=== PATIENT | female | born 1960 | race Caucasian/White ===

== ENCOUNTER 2017-01-06 10:19 | Inpatient (IN) | payer MEDICARE, OTHER, MEDICAID ==
[~2017-01-06] VITALS: Ht 160 cm; Wt 41.7 kg
[2017-01-06] VITALS (8 sets, daily range): BP systolic 63–145; BP diastolic 46–92; PULSE 78–102; RESP 10–19; O2SAT 96–100
[~2017-01-06 10:19] MED LIST: BACL10TA PO; BLAC80CA PO; CHOL100045 PO; FISH1CAP16 PO; GLUC-120 PO; LACT1CAP73 PO; LEVO750T39 PO; MAGN250T PO; MULT-939 PO; NATA300V IV; NORT75CA PO; PEPS1TAB11 PO; TIZA4CAP8 PO; TURM1POW PO; VALA500T38 PO; [UNRECOGNIZED DRUG - CODE] ORAL; [UNRECOGNIZED DRUG - CODE] PO; [UNRECOGNIZED DRUG - OTHER] PO; [UNRECOGNIZED DRUG - OTHER] PO; b complex PO; thyroid support PO
[2017-01-06] MEDS ORDERED: 0.9% Sodium Chloride 1,000 ML IV ONE ×2 (10:35→14:25)
--- NOTE | 2017-01-06 10:56 | DRSVH ---
PROCEDURE: X-RAY CHEST ONE VIEW, PORTABLE ([id number]) INDICATIONS: sepsis TECHNIQUE: One view of the chest was acquired. COMPARISON: [facility], CR, XR CHEST 1VW (PORTABLE), 06/19/2015, 10:19. FINDINGS: Surgical changes and devices: None. Lungs and pleura: No pleural effusions or pneumothorax. Lungs are clear. Mediastinum: Mediastinal contours appear normal. Heart size is normal. Bones and chest wall: No suspicious bony lesions. Overlying soft tissues appear unremarkable. IMPRESSION: No acute process. Dictated by: Janene Taylor M.D. on 01/06/2017 at 10:55 Approved by: Janene Taylor M.D. on 01/06/2017 at 10:55
--- NOTE | 2017-01-06 10:58 | ED.REPORT ---
HPI-General Illness Date of Service January 06, 2017 ED Provider: Medardo Garcia MD A 56 year old female with an extensive medical history including MS, urinary retention with chronic Hart catheter and Vancomycin resistant enterococcus faecalis sepsis in 2012 presents to the ED accompanied by her hunting guide due to suspicion of a UTI and sepsis. Infection is suspected by the pt and her hunting guide due to hypotension in the 60s, fever, chills, diaphoresis, constipation, weakness and decreased fluid and food intake. The symptoms began yesterday and have persisted since. These symptoms are characteristic of her infections and were present when she was diagnosed with enterococcus faecium sepsis in 2012. The pt is also complaining of trouble swallowing and abnormal speech as of this morning, which she has not experienced before. The pt denies shaking, cough, or shortness of breath. The pt's blood pressure fluctuates at baseline, but hypotension is usually easily corrected with fluids and positioning. She noticed that her blood pressure was low yesterday, which took an abnormally long time to correct. Treatments today had no corrective impact on her hypotension. The pt has her Hart catheter changed once a month and the current catheter has been in for two weeks. She has been treated with ibuprofen and Tylenol, the last dose of which was at 08:30. The pt's last TYSABRI infusion was three weeks ago and she has not been on antibiotics for some time. Nursing Notes Stated Complaint: LOW BLOOD PRESSURE Chief Complaint: General Complaint Nursing Notes Reviewed: Yes ([place] not reconciled) Allergies: Coded Allergies: Sulfa (Sulfonamide Antibiotics) (Verified Allergy, Severe, Hives, 02/23/15) ciprofloxacin (Verified Allergy, Severe, 01/06/17) I could terbinafine (Verified Allergy, Unknown, 02/23/15) Scheduled ([b complex]) 1 TAB PO DAILY ([thyroid support ]) 1 TAB PO HS ([thyroid support]) 2 TAB PO DAILY Acetaminophen (Acetaminophen) 500 Mg Tablet 1,000 MG PO BID Baclofen (Baclofen) 10 Mg Tablet 5 MG PO MID DAY Black Cohosh Root Extract (Black Cohosh Extract) 80 Mg Capsule 40 MG PO BID Cholecalciferol (Vitamin D3) (Vitamin D) 1,000 Unit Capsule 5,000 UNIT PO daily alternating Cholecalciferol (Vitamin D3) (Vitamin D) 1,000 Unit Capsule 10,000 UNIT PO daily alternating Fish Oil/Borage/Flax/Om3,6,9#1 (Michael 3-6-9 Complex Softgel) 400 Mg Capsule 1, 600 MG PO DAILY Fish Oil/Borage/Flax/Om3,6,9#1 (Michael 3-6-9 Complex Softgel) 400 Mg Capsule 800 MG PO HS Gluc 2Kcl/Chondr/James Hy/Hy AC (Glucosamine & Chondroitin Cap) 1 Each Capsule 2 EACH PO DAILY Lactobacillus Combo No.11 (Probiotic) 1 Each Cap.sprink 50 MG PO DAILY Magnesium (Magnesium) 250 Mg Tablet 500 MG PO DIRECTED Methylphenidate Chew (Methylphenidate Chew) 10 Mg Tab.chew 10 MG PO DIRECTED 10 mg in a.m. and 10 mg at 1400 daily Naproxen Sodium (Aleve) 220 Mg Capsule 440 MG PO BID Natalizumab (Tysabri) 300 Mg/15 Ml Vial 300 MG IV EVERY 4 WEEKS Nortriptyline (Nortriptyline) 75 Mg Capsule 75 MG PO HS Pepsin/Katt/Ox Bile/Rogers/Bet/Pap (Enzymatic Digestant ER Tablet) 1 Each Tablet.er 1 EACH PO DAILY Strontium Nitrate (Strontium Nitrate) 1 Gm Crystals 680 MG ORAL DAILY Tizanidine (Tizanidine) 4 Mg Capsule 4 MG PO TID Turmeric (Curcumin) 1 Gm Powder 665 MG PO DAILY Valacyclovir (Valacyclovir) 500 Mg Tablet 500 MG PO HS Miscellaneous Medications Multivits,Ca,Minerals/Iron/FA (Women's Daily Formula Caplet) 500-18-0.4 Tablet 2 EACH PO General Time Seen by MD: 10:29 Chief Complaint Other (Possible UTI) Hx 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 Physical Exam Vital Signs Vital Signs Date Time Temp Pulse Resp B/P Pulse Ox O2 Delivery O2 Flow Rate FiO2 01/06/17 13:26 89 19 127/72 100 Room Air 01/06/17 11:57 36.4 80 18 95/58 100 Room Air 01/06/17 10:44 36.4 78 10 90/47 98 Room Air Initial VS: Reviewed, Vital signs abnormal General/Constitutional: Awake, Alert Appearance / Presentation: Positive: Cachectic profound global weakness chronically ill appearing answering questions thick speech, caretakers state that this is unusual but pt reports speech is due to dry mouth chronic Hart catheter draining clear, dark urine Head / Eyes: Atraumatic, Normocephalic, PERRL, EOMI ENT: Atraumatic, Airway patent, Mucous membranes moist Neck: Atraumatic, Supple, Full range of motion Respiratory / Chest: Atraumatic, Breath sounds NL, Breath sounds = bilat, No respiratory distress not tachypneic or dyspneic Cardiovascular: Heart rate NL, Regular rhythm, Heart sounds NL Abdomen: Atraumatic, Soft, Non-tender Back: Atraumatic, Full range of motion Upper Extremities Upper Extremity / MS: Atraumatic, Full range of motion Lower Extremity / Pelvis / MS: Atraumatic, Full range of motion, No edema Skin: Atraumatic, Color NL, No rash, Warm, Dry Neurologic: Oriented X3, Speech NL, No motor deficits, No sensory deficits Psychiatric: Affect NL, Mood NL Interpretation & Diagnostics Lab Results Interpretation Result Diagram: 01/06/17 1115 01/06/17 1115 Test 01/06/17 11:12 01/06/17 11:15 Urine Color Yellow (YELLOW) Urine Appearance Cloudy (CLEAR,HAZY) Urine pH 8.0 (5.0-8.0) Urine Specific Valentine 1.015 (1.003-1.035) Urine Protein Negativemg/dL (NEG,TRACE) Urine Glucose (UA) Negativemg/dL (NEGATIVE) Urine Ketones 15mg/dL (NEGATIVE) Urine Occult Blood Trace (NEGATIVE) Urine Nitrite Positive (NEGATIVE) Urine Bilirubin Negative (NEGATIVE) Urine Urobilinogen Normalmg/dL (NORMAL) Urine Leukocyte Esterase Large (NEGATIVE) Urine RBC 0-2/hpf (0-2) Urine WBC >50/hpf (0-5) Urine Epithelial Cells Few/hpf (NONE-MOD) Urine Crystals None seen (NONE SEEN) Urine Bacteria Many/hpf (NONE-FEW) Urine Hyaline Casts None/lpf (NONE) Urine Granular Casts None seen (NONE SEEN) Urine Waxy Casts None seen (NONE SEEN) Urine Red Blood Cell Casts None seen (NONE SEEN) Urine White Blood Cell Casts None seen (NONE SEEN) Urine Mucus None seen (None Seen) Urine Trichomonas None seen (NONE SEEN) Urine Yeast None (NONE SEEN) Urinalysis Comment None Urine Culture Reflexed Indicated White Blood Count 6.2th/mm3 (3.8-10.1) Red Blood Count 3.21mil/mm3 (3.90-5.20) Hemoglobin 9.8g/dL (12.0-15.6) Hematocrit 29.4% (35.0-46.0) Mean Corpuscular Volume 91.6fL (81-100) Mean Corpuscular Hemoglobin 30.5pg (27.0-35.0) Mean Corpuscular Hemoglobin Concent 33.3% (32.0-37.0) Red Cell Distribution Width 14.8% (12.3-15.4) Platelet Count 200bil/L (150-400) Neutrophils (%) (Auto) 63.2% (40-74) Lymphocytes (%) (Auto) 26.1% (14-46) Monocytes (%) (Auto) 9.5% (4-12) Eosinophils (%) (Auto) 0.3% (0-5) Basophils (%) (Auto) 0.6% (0-3) Sodium Level 127mEq/L (134-144) Potassium Level 4.1mEq/L (3.5-5.2) Chloride Level 92mEq/L (97-108) Carbon Dioxide Level 21mmol/L (18-29) Blood Urea Nitrogen 6mg/dL (6-24) Creatinine < 0.30mg/dL (0.57-1.00) Estimat Glomerular Filtration Rate 331mL/min (>59) Glucose Level 114mg/dL (60-99) Lactic Acid Level 1.3mmol/L (0.4-2.0) Calcium Level 7.7mg/dL (8.5-10.1) Total Bilirubin 0.3mg/dL (0.0-1.2) Aspartate Amino Transf (AST/SGOT) 201U/L (0-50) Alanine Aminotransferase (ALT/SGPT) 110U/L (0-32) Alkaline Phosphatase 104U/L (25-150) Total Protein 4.9g/dL (6.4-8.4) Albumin 2.6g/dL (3.4-5.0) Lab Results Interpretation: CBC mild anemia CMP mild hyponatremia, mild LFT abnormalities nonspecific low albumin, protein consistent with a level of vomiting addition Cultures 2 pending Urinalysis markers of infection, but is from a chronic Hart so not totally interpretable, cultures pending (note: Previous history of VRE in 2013, microbiology is at this facility and the sensitivity pattern reviewed) X-Ray Chest Interpretation Chest Xray Interpretation: IMPRESSION: No acute process. Dictated by: Janene Taylor M.D. on 01/06/2017 at 10:55 Approved by: Janene Taylor M.D. on 01/06/2017 at 10:55 Interpretation / Wet Read by: Interpret - Radiologist Re-Eval/Medical Decision Med Decision/Clinical Course This is a 56-year-old female with chronic MS who is on Tysabri infusions monthly (so she is immunosuppressed) who presents with a concern for possible sepsis from a UTI. The patient has had intermittent sepsis, and has been hospitalized for VRE of urine with sepsis in 2012-and is worried that is what is going on now. She does have a chronic Hart, and she always has a low level of infection, but reports that she had labs in urine and last month that were "okay". She also notes she has very labile blood pressures, and sometimes has low blood pressure, sometimes has moderate blood pressure, put her blood pressures low she has a strategy of drinking specific fluids, electrolytes, laying down and a blood pressure usually comes up. Over that yesterday she felt unusually fatigued, and then the blood pressure started to come up, but today she felt weaker, she is concerned and feels that she is developing infection, and her blood pressure did not really respond. She reports she does not usually get concerned till her blood pressures less than 70 systolic, and today her blood pressure is low as 60. On arrival her blood pressures 90, but she appears weak, cachectic, moderately ill-and chronically ill. Not diaphoretic, she is not febrile. She denies respiratory or alternate symptoms worse, she does have a Hart draining clear urine, but it is dark. Her speech is mildly thick, which she says has just because of a dry mouth. Her abdomen is soft nontender without clinical signs of peritonitis. No cellulitis or alternate source of infection or fever evident. Lungs are clear, no heart murmurs. Overall the patient's presentation is highly concerning for developing sepsis. Although she is not febrile, and does not log turner to have white count- with the hypotension, the history of immunosuppression, and her overall symptoms remain highly suspicious for an infectious etiology. The patient does not think her MS has changed from baseline.. The patient clinically appears on the dry side receive IV fluids, blood pressures improved to the mid 90s which she says is pretty good for her. She had no recurrence of severe hypotension in the department, was only profoundly hypotensive for EMS. Surgical alternate sources revealed a normal chest x-ray. Urine has multiple markers of infection-again the samples from a Hart, so this is not definitive. The Hart itself is about 3 weeks old, and was replaced in the department. Given her comorbidities, highly concerning status she is being empirically covered with aggressive antibiotics. She has a prior history of vancomycin resistant enterococcus in 2013, so I discussed the case with infectious disease further thoughts of whether or not the patient wears isolation and/or empiric treatment. The patient does not currently require isolation, but they do recommend empiric coverage. The resistance pattern from 2013 was reviewed, and was sensitive to low nasal lid, however the patient is on an antidepressant for interaction with oral and linezolid, so Dr. Conner recommended daptomycin 400 mg IV, and for general coverage ertapenem 1 g IV daily-so these were initiated. Discussed the case with the patient's neurologist Dr. Javed agrees with the admission with a focus on management of the initial sepsis, but recommends when possible to obtain an MRI of the brain with and without contrast given his report of mild dysphagia to exclude the possibility of development of PNL from the TYsabri. Patient was seen by speech pathology and was cleared. Discussed the hospitalist and the patient is being admitted in stable condition. She is improved,. Hypotension is resolved. Source of Hx: Old records Time of Eval: 10:29 Re-Evaluation/Progress Note: Pt informed of the plan for admission during the intial interveiw. The pt understands and agrees with the plan. All questions are addressed at this time. Consultation #1: Referral / Consult Name: Marc Conner MD Call Returned at: 12:22 Note: Consulted with Dr. Marc Conner, infectious disease specialist, regarding pt's case. He recommends not giving the pt Linezolid given her antidepressant use. He recommends empiric daptomycin 400 mg and ertapenem for general coverage without isolation precautions. Dr. Conner agrees to consult. Consultation #2: Referral / Consult Name: Mary Dominguez MD Consulted With: Neurology Call Returned at: 12:43 Meat Carver: Agrees with eval, Agrees with plan Note: Consulted with Dr. Dominguez, neurology, regarding pt's case. Dr. Dominguez agrees with the evaluation and plan. Consultation #3: Referral / Consult Name: Jefry Sweeney MD Consulted With: Hospitalist Call Returned at: 13:03 Meat Carver: Agrees with eval, Agrees with plan, Accepts admit Note: Consulted with Dr. Sweeney, hospitalist, regarding pt's case. Dr. Sweeney agrees with the evaluation and agrees to admit the pt. Differential Diagnosis: Positive: Urinary tract infection, Negative: Drug dependence, G-tube repair/replacement, Neutropenia, Syncope Counseled Regarding: Diagnosis, Lab results, Need for admission Discharge & Departure Primary Impression: Sepsis Sepsis type: sepsis due to unspecified organism Qualified Code: A41.9 - Sepsis, unspecified organism Additional Impressions: UTI (urinary tract infection) Urinary tract infection type: site unspecified Hematuria presence: without hematuria Qualified Code: N39.0 - Urinary tract infection, site not specified History of infection with vancomycin resistant Enterococcus (VRE) Multiple sclerosis Dysphagia Dysphagia type: unspecified Qualified Code: R13.10 - Dysphagia, unspecified Hypotension Hypotension type: unspecified hypotension type Qualified Code: I95.9 - Hypotension, unspecified Disposition: ADMITTED TO HOSPITAL Discharge Condition All VS Reviewed: Yes Condition: Stable Referrals: Sai Fink MD (PCP) Mary Dominguez MD Crit Care Except Billable Proc Time Spent: 30-74 minutes Services Performed: Patient management by me, Time spent at bedside, Reviewing test results, Reviewing imaging, Discussing patient care, Documentation in record, Time with fam/surrogate Scribe Attestation Portions of this note were transcribed by Hailey Goff. I, Dr. Garcia personally performed the history, physical exam and medical decision-making; I reviewed and confirmed the accuracy of the information in the transcribed note. Signed by: Td Marshall, 01/06/2017 and 1317. copies to: Mary Dominguez MD; Sai Fink MD, Matthew F MD January 06, 2017 10:58 HAILEY GOFF January 06, 2017 11:22
[2017-01-06 11:32] LABS: BASOPHILS % (AUTO) 0.6 % (0-3); EOSINOPHILS % (AUTO) 0.3 % (0-5); MONOCYTES % (AUTO) 9.5 % (4-12); Mean Corpuscular Hemoglobin 30.5 pg (27.0-35.0); Mean Corpuscular Volume 91.6 fL (81-100); NEUTROPHILS % (AUTO) 63.2 % (40-74); Platelet Count 200 bil/L (150-400)
[2017-01-06 11:35] LABS: APPEARANCE,URINE CLOUDY (CLEAR,HAZY); COLOR,URINE YELLOW (YELLOW); OCCULT BLOOD,URINE TRACE (NEGATIVE); UROBILINOGEN,URINE NORMAL (NORMAL)
[2017-01-06] MEDS ORDERED: Lidocaine 2% 6mL Topical Jelly TOPICAL ONE (12:05)
[2017-01-06] MEDS ORDERED: cefTRIAXone Inj 2,000 MG in Dextrose 5% Minibag Plus 50 ML IV ONE (12:10)
[2017-01-06] MEDS ORDERED: DAPTOmycin Inj 400 MG in 0.9% Sodium Chloride 50 ML IV ONE (12:30)
[2017-01-06] MEDS ORDERED: Ertapenem Inj 1,000 MG in 0.9% Sodium Chloride 50 ML IV ONE (12:30)
[2017-01-06] MEDS ORDERED: Ondansetron 2 mg/mL 2 mL Inj IVPUSH PRN (13:10)
[2017-01-06] MEDS ORDERED: Alum-Mag Hydrox-Simeth 30 mL Suspension PO PRN (13:10)
[2017-01-06] MEDS ORDERED: Polyethylene Glycol (PEG) 17 Gm Powder PO PRN (13:10)
--- NOTE | 2017-01-06 13:30 | NUR ---
Evaluation completed. Please go to "Notes" then click on "Assessments and Notes" (bottom left corner of screen). Then select appropriate discipline tab on top of screen.
[2017-01-06] MEDS ORDERED: ACET-171 PO (14:31)
[2017-01-06] MEDS ORDERED: NAPR220C11 PO (14:31)
[2017-01-06] MEDS ORDERED: MULT-1080 PO (14:33)
[2017-01-06] MEDS ORDERED: DOCU-41 PO (14:50)
[2017-01-06] MEDS ORDERED: POLY17PO6 PO (14:50)
[2017-01-06] MEDS ORDERED: CHOLECALCIFEROL 10000 UNIT PO SCH (15:35)
--- NOTE | 2017-01-06 17:30 | NUR ---
Transfer Pt. transferred from the Ed to room 2023 PCC. Pt. upon arrival was content and had no c/o pain, SOB or CP. Pt. is unable to ambulate and uses wheel chair at baseline. Pt. at this time is compliant with care, VS stable and at RA. Will continue to monitor.
[2017-01-06] MEDS: Polyethylene Glycol (PEG) 17 Gm Powder PO SCH (17:53)
--- NOTE | 2017-01-06 18:42 | PCM.HPMED ---
Subjective Date of Service January 06, 2017 Primary Provider: Admitting Physician: Jefry Sweeney MD Primary Care Physician: Sai Fink MD Attending Physician: Jefry Sweeney MD Admit Status: From the Emergency Department, Full Admit, Admit to Yellow Team Chief Complaint: "I had really low, low blood pressure". History of Present Illness: The patient is a very pleasant 56-year-old white female with an extensive medical history including multiple sclerosis, urinary retention with chronic Hart catheter in place and history of vancomycin-resistant Enterococcus faecalis septicemia in 2012 has labile blood pressure home and regularly monitors her blood pressure at home. Patient will routinely drink extra liquids or raise her legs up if her blood pressure is low and yesterday she noticed that her blood pressure was low so she drank a 6 ounce can of V8 and "tons of water" and put her legs up. Pressure improved and I asked her what "tons of water" were she stated approximately 3 L of water. However, today when she found her blood pressure to be low in fact she could not even find a blood pressure on her monitor. She drank 2 L of water and put her legs up however she could still not get a blood pressure to record on her monitor. She feels that her blood pressure was so low that was undetectable by her fairly high quality blood pressure monitoring kit. She therefore called 911 and was brought to [facility] emergency room by EMS services. Patient was evaluated by Dr. Medardo Garcia who found that the patient's systolic blood pressure on arrival was only 90 patient speech was thick but she felt that was due to a very dry mouth. Patient had a chest x-ray which was unremarkable. Due to the medical suspicion of sepsis patient was given IV fluids. Patient had blood and urine cultures obtained and patient was felt to in need of IV antibiotics however she had a history of vancomycin resistant enterococcus [place] [address] Medardo Garcia contacted Dr. Marc Conner of infectious disease and Dr. Conner recommended daptomycin 400 mg IV and ertapenem 1 g IV daily. These were given in the emergency room. Dr. Salas as also discussed the case with the patient's neurologist Dr. Dina Abdul who recommended patient have an MRI with and without contrast. To exclude the possibility of development of PML the Tysabri medication that she takes. Patient was seen by speech pathology and was cleared to eat. Patient's urinalysis was found to have greater than 50 white blood cells and positive leukocyte Estrace and given the clinical evidence of urinary tract infection with septicemia with history of vancomycin-resistant enterococcus patient was admitted to the hospital service for further evaluation and treatment. Review of Systems: General: Patient is bedridden and requires caregiver 3 hours in the morning 2 hours in the afternoon 4 hours in the evening from 9 PM to 8 AM she is alone. She states that the caregivers are responsible for all of her activities of daily living. She is unable to perform any of the activities of daily living due to her multiple sclerosis. She has been feeling very weak and has had some fever, chills, diaphoresis, constipation and weakness with decreased fluid and food intake. HEENT: Patient has no headache, patient has no diplopia, patient has no changes in vision. However, she does have a diagnosis of macular degeneration. Patient has no problems with their ears, nose or throat. Patient has no known dental problems. Patient has no pharyngitis or history of thrush. Neck: Patient has no stiffness in the neck. He states she has an accentuated curvature of her neck. Patient has no lymphadenopathy. Patient has no other problems with their neck. Pulmonary: Patient has no shortness of breath, no cough, no expectoration of sputum. Patient has no pleurisy. Patient has no chest pain. Patient has no history of asthma or COPD. Cardiovascular: Patient has no chest pain. Patient has no history of heart murmur. Patient has no palpitations. Patient has no history of myocardial infarction. Patient has no history of coronary artery disease that has been diagnosed. However, she has had angina twice before due to "stress". Gastrointestinal: Patient has no history of hepatitis A, B or C. Patient has no history of peptic ulcer disease. Patient has no history of gastroesophageal reflux disease. Patient has no history of nausea, vomiting, or diarrhea. Patient has no history of hematemesis, hematochezia, or melena. Patient has no history of colitis. Renal: Patient has no history of kidney disease. No history of kidney stones. Genitourinary: Patient has a neurogenic bladder and urinary retention and has a chronic indwelling Hart. She has a Hart catheter changed once a month. She states she is chronically colonized with bacteria and her urologist will treat it, unless she is "septic". Musculoskeletal: Patient has a history of osteoporosis. Neurologic: Patient has no history of stroke, no history of seizure, no history of TIA. However, patient has progressive multiple sclerosis and is bedridden and unable to hold her own weight. She is able to move her upper extremities quite well and does practice "virtual walking". Psychiatric: Patient has a history of suicidal depression. She is not suicidal at present time. She has a history of dissociative identity disorder or "DID". She has been treated with "EMDR". She states that she has 2 other personalities 1 which will literally try to kill people who are close to her and another personality who will occur up on the floor and start sucking her thumb. Both personalities take over her persona and she is unaware of her behavior during these periods. The remainder of the entire review of systems was reviewed with patient and is as mentioned above otherwise negative. Allergies Coded Allergies: Sulfa (Sulfonamide Antibiotics) (Verified Allergy, Severe, Hives, 02/23/15) ciprofloxacin (Verified Allergy, Severe, 01/06/17) I could terbinafine (Verified Allergy, Unknown, 02/23/15) Home Medications Scheduled ([b complex]) 1 TAB PO DAILY ([thyroid support ]) 1 TAB PO HS ([thyroid support]) 2 TAB PO DAILY Acetaminophen (Acetaminophen) 500 Mg Tablet 1,000 MG PO BID Baclofen (Baclofen) 10 Mg Tablet 5 MG PO MID DAY Black Cohosh Root Extract (Black Cohosh Extract) 80 Mg Capsule 40 MG PO BID Cholecalciferol (Vitamin D3) (Vitamin D) 1,000 Unit Capsule 5,000 UNIT PO daily alternating Cholecalciferol (Vitamin D3) (Vitamin D) 1,000 Unit Capsule 10,000 UNIT PO daily alternating Fish Oil/Borage/Flax/Om3,6,9#1 ([place] 3-6-9 Complex Softgel) 400 Mg Capsule 1, 600 MG PO DAILY Fish Oil/Borage/Flax/Om3,6,9#1 ([place] 3-6-9 Complex Softgel) 400 Mg Capsule 800 MG PO HS Gluc 2Kcl/Chondr/James Hy/Hy AC (Glucosamine & Chondroitin Cap) 1 Each Capsule 2 EACH PO DAILY Lactobacillus Combo No.11 (Probiotic) 1 Each Cap.sprink 50 MG PO DAILY Magnesium (Magnesium) 250 Mg Tablet 500 MG PO DIRECTED Methylphenidate Chew (Methylphenidate Chew) 10 Mg Tab.chew 10 MG PO DIRECTED 10 mg in a.m. and 10 mg at 1400 daily Naproxen Sodium (Aleve) 220 Mg Capsule 440 MG PO BID Natalizumab (Tysabri) 300 Mg/15 Ml Vial 300 MG IV EVERY 4 WEEKS Nortriptyline (Nortriptyline) 75 Mg Capsule 75 MG PO HS Pepsin/Katt/Ox Bile/Rogers/Bet/Pap (Enzymatic Digestant ER Tablet) 1 Each Tablet.er 1 EACH PO DAILY Strontium Nitrate (Strontium Nitrate) 1 Gm Crystals 680 MG ORAL DAILY Tizanidine (Tizanidine) 4 Mg Capsule 4 MG PO TID Turmeric (Curcumin) 1 Gm Powder 665 MG PO DAILY Valacyclovir (Valacyclovir) 500 Mg Tablet 500 MG PO HS Miscellaneous Medications Multivits,Ca,Minerals/Iron/FA (Women's Daily Formula Caplet) 500-18-0.4 Tablet 2 EACH PO PMH Multiple sclerosis progressive to the point where patient is wheelchair-bound and bedbound. She is unable to bear her own weight and has a chronic indwelling Hart. She reports having a "twisty redundant colon". She reports having 2 episodes of angina during stressful periods of her life. She has a history of shingles. She has a history of cervical cancer and had a hysterectomy. Physical history of hypothyroidism. She had severe migraines in 2000 when her 15-year-old son committed suicide. She has a history of macular degeneration in both eyes left greater than right She has a history of osteoporosis She has a history of "low-grade athlete's foot" She has psychiatric problems as described in the systems. Patient is 3 para 3. All were normal spontaneous vaginal deliveries. Surgical History She had her adenoids out She had her wisdom teeth removed per history She had bilateral bunionectomies Data colonoscopy in May 2015 She reports a hysterectomy She reports a unilateral salpingo-oophorectomy and she had her daughter they thought she had a tubal . Patient had an episiotomy with at least one of her 3 childbirths and the lidocaine use had no effect on her. Family History Patient's mother when the patient was 5 years old. She does not know how old her mother was when she and she does not know anything about her history other than she had alcoholism and pneumonia. Patient knows nothing about her father. She does have 1 brother who is a biological sibling who has asthma. Of note 2 of the patient's children also have suicidal depression. Social History Hx Alcohol Use: Yes (recovering alcoholic sober for 25 years. Patient used to drink Bacardi rum from morning until evening and got to the point where it would do nothing for her anymore. After going to a counselor she quit alcohol in July on 07/14/1991.) Hx Substance Use: Yes (some marijuana and amphetamines . Patient used to cardiac until 3 in the morning and had to get up at 6:30 to go to work so she would take methamphetamine in the form of "white crosses" and then "black beauties") Hx Tobacco Use: Yes Smoking Status: Former Smoker (patient smoked 2 packs per day from the age of 13 to 1992.) Years of Smokin Living Arrangement: Alone Additional Information Patient was born in [place] she went to high school in [place], [place] and she attended a [employer], [place] and then in a [facility] [facility] or [employer] [facility] [employer]. She is to her first and only for 15 years her marriage was falling apart and then she had and was diagnosed with multiple sclerosis and came to live in [place], [place]. Patient had her kids with her initially and then since they have moved out she now lives alone. One of her children committed suicide at the age of 15. This was very hard on her. One of her other children also has a history of suicidal depression. Patient herself is suffers from suicidal depression which she thought was normal growing up and dissociative identity disorder, otherwise known as"DID"(see review of systems) and PTSD. Exam Vital Signs Vital Sign - Last Date Time Temp Pulse Resp B/P Pulse Ox O2 Delivery O2 Flow Rate FiO2 01/06/17 15:09 97 01/06/17 14:58 36.4 18 125/82 99 Room Air Exam General: Patient appears to be in no apparent distress. She is alert and responsive and a good historian at this time. HEENT: Head is atraumatic and normocephalic. Eyes: Pupils are equally round and reactive to light and accommodation. Extraocular muscles are intact. Sclera are white, anicteric. Subconjunctival mucosa is pink. Ears and nose are unremarkable. Oropharynx: There is no mucosal lesions, there is no thrush, there is no pharyngitis. Neck: Is supple, there are no nodes, or masses or tenderness. Chest: Is clear to auscultation and percussion. There are no rales, rhonchi, wheezes or rubs. Heart: Rate, rhythm is regular. There is no murmur, rub or gallop. Abdomen: Good bowel sounds are present. Abdomen is soft, nontender, no organomegaly or masses were appreciated. Extremities: Are cachectic, but symmetrical and well perfused. There is no edema, there is no cellulitis, no rash. Neurologic: Patient is unable to move her legs. She is able to move her feet. She is not able to move her lower extremities against gravity or at all for that matter except her feet. Cranial nerves II through XII are intact. Psychiatric: Patients mood is calm and she shows no sign of agitation. She appears to be in good spirits. Genital: She has a Hart catheter in place pelvic exam was deferred. Rectal: Deferred Lab and Diagnostics Result Diagram: 01/06/17 1115 01/06/17 1115 Microbiology Plan urine cultures are pending. X-Rays, CTs and MRIs PROCEDURE: X-RAY CHEST ONE VIEW, PORTABLE ([id number]) INDICATIONS: sepsis TECHNIQUE: One view of the chest was acquired. COMPARISON: [facility], CR, XR CHEST 1VW (PORTABLE), 06/19/2015, 10 :19. FINDINGS: Surgical changes and devices: None. Lungs and pleura: No pleural effusions or pneumothorax. Lungs are clear. Mediastinum: Mediastinal contours appear normal. Heart size is normal. Bones and chest wall: No suspicious bony lesions. Overlying soft tissues appear unremarkable. IMPRESSION: No acute process. Dictated by: Janene Taylor M.D. on 01/06/2017 at 10:55 Approved by: Janene Taylor M.D. on 01/06/2017 at 10:55 Assessment & Plan Patient is a very pleasant 56-year-old white female with long-standing history of multiple sclerosis who is wheelchair-bound unable to hold her own weight standing. She has a chronic indwelling Hart catheter. She has labile blood pressures over the last 24-48 hours has been monitoring her blood pressures and trying to correct hypotension with drinking V8 juice and liters of water. However, today her blood pressure was so low it would not register on her blood pressure monitor. Patient also has been experiencing some subjective fevers chills and weakness and difficulty with speech. Patient has a history of a VRE urinary tract infection in 2012. Patient was admitted to the hospitalist service for further evaluation and treatment. # Sepsis, present at the time of admission. Active and ongoing - Source undoubtedly a urinary tract infection with chronic indwelling Hart and associated pyuria with positive leukocyte esterase in the urine. - Patient has a history of a VRE urinary tract infection in 2012. We will need to rule out the possibility of recurrence. - Dr. Conner has been consulted and has recommended that the patient received Daptomycin and Invanz which have been ordered and we will continue, pending Dr. Conner's formal consultation. - We will continue daptomycin 6 mg/kg IV every 24 hours and Invanz 1 g IV every 24 hours for now pending culture results. # Advanced multiple sclerosis, present at the time of admission. Active with acute encephalopathy - Patient's neurologist is Dr. Dina Collins - Suspect patient has a urinary tract infection with sepsis with related encephalopathy. - Possible PML associated with Tysabri use. An MRI has been ordered and is pending - We will consult speech therapy, occupational therapy, physical therapy. - We will consult neurology if necessary. However, I suspect the patient's change in mental status and encephalopathy are related to her current infection and not an advancement of her multiple sclerosis or PML. # History of remote angina - Patient has no chest pain at present time - Continue telemetry monitoring until tomorrow # History of shingles - Patient is immunosuppressed on Tysabri - Continue Valtrex as at home. # History of hypothyroidism - Check TSH in a.m. - Continue with home meds # History of osteoporosis - Continue home medications # History of depression, dissociative identity disorder and PTSD - Continue patient's home medications - Close observation and support as needed # History of cervical cancer status post hysterectomy Disposition: Patient will likely require more than 2 midnights to evaluate and treat the above complex conditions. Therefore, patient was admitted as an inpatient. Pain Evaluation: Adequate Pain Control GI Prophylaxis: Not indicated VTE Prophylaxis: Sub-Q Enoxaparin Resuscitation Status: CPR: Attempt Resuscitation Jefry Sweeney MD January 06, 2017 18:42
[2017-01-06] MEDS ORDERED: [UNRECOGNIZED DRUG - OTHER] PO SCH (21:00)
[2017-01-06] MEDS ORDERED: THYROID SUPPORT PO SCH (21:00)
[2017-01-06] MEDS ORDERED: FISH OIL PO SCH (21:00)
[2017-01-06] MEDS ORDERED: BORAGE PO SCH (21:00)
[2017-01-06] MEDS ORDERED: FLAX PO SCH (21:00)
[2017-01-07] VITALS (11 sets, daily range): BP systolic 68–159; BP diastolic 40–101; PULSE 78–104; RESP 16–20; O2SAT 96–98
[2017-01-07] MEDS ORDERED: 0.9% Sodium Chloride 250 ML ONE (00:12)
--- NOTE | 2017-01-07 00:20 | NUR ---
Hypotension At midnight vitals check patient noted to be hypotensive 60s/40s. Pressure checked twice with automatic cuff and once manually; all readings less than 65 systolic. Night hospitalist pagetalon. New order for 250 ml NS bolus and repeat lactic acid. Patient A&Ox3, states she does not feel as bad as she usually does when her pressure drops this low. Patient positioned in bed with legs elevated. Continue close monitoring. Addendum: 01/07/17 at 0108 by ENRIKE FELTON RN Bolus completed; patient's BP improved to 69/46. Lactic acid 0.8. Hospitalist dyan. Addendum: 01/07/17 at 0159 by ENRIKE FELTON RN Second 250 ml bolus of NS given. BP improved to 84/60. Addendum: 01/07/17 at 0427 by ENRIKE FELTON RN 500 ml bolus of NS given; BP 103/69. Patient states she feels well. Continue to monitor.
[2017-01-07] MEDS ORDERED: 0.9% Sodium Chloride 500 ML IV ONE (02:55)
[2017-01-07 03:48] LABS: BASOPHILS % (AUTO) 0.5 % (0-3); EOSINOPHILS % (AUTO) 1.5 % (0-5); MONOCYTES % (AUTO) 11.6 % (4-12); Mean Corpuscular Hemoglobin 30.6 pg (27.0-35.0); Mean Corpuscular Volume 91.9 fL (81-100); NEUTROPHILS % (AUTO) 31.4 % (40-74); Platelet Count 222 bil/L (150-400)
[2017-01-07 04:16] LABS: Magnesium 1.8 mg/dL (1.6-2.6); Phosphorus 4.1 mg/dL (2.5-4.9)
[2017-01-07] MEDS ORDERED: FISH OIL PO SCH (08:30)
[2017-01-07] MEDS ORDERED: [UNRECOGNIZED DRUG - MIXTURE] PO SCH (08:30)
[2017-01-07] MEDS ORDERED: TURMERIC PO SCH (08:30)
[2017-01-07] MEDS ORDERED: THYROID SUPPORT PO SCH (08:30)
[2017-01-07] MEDS ORDERED: BORAGE PO SCH (08:30)
[2017-01-07] MEDS ORDERED: [UNRECOGNIZED DRUG - OTHER] PO SCH (08:30)
[2017-01-07] MEDS ORDERED: [UNRECOGNIZED DRUG - OTHER] ORAL SCH (08:30)
[2017-01-07] MEDS ORDERED: FLAX PO SCH (08:30)
[2017-01-07] MEDS ORDERED: [UNRECOGNIZED DRUG - OTHER] PO SCH (08:30)
[2017-01-07] MEDS: Multivit-Miner-Folic Acid-Iron Tablet PO SCH (08:52)
[2017-01-07] MEDS: Vitamin B Complex/Vit C Tablet PO SCH (08:53)
[2017-01-07] MEDS: Omega-3-Acid Ethyl Esters 1 Gm Capsule PO SCH (08:53)
[2017-01-07] MEDS: Polyethylene Glycol (PEG) 17 Gm Powder PO SCH (08:54)
[2017-01-07] MEDS: Ertapenem Inj 1,000 MG in 0.9% Sodium Chloride 50 ML IV SCH (08:55)
--- NOTE | 2017-01-07 09:50 | DRSVH ---
PROCEDURE: MRI MULTIPLE SCLEROSIS BRAIN WITH AND WITHOUT CONTRAST ([id number]) INDICATIONS: eval for PML Request by nataliia Collins [facility] TECHNIQUE: Noncontrast sagittal and axial FLAIR, axial and coronal T2 fast spin echo, axial VIBE, axial gradient echo, axial diffusion and ADC through the brain. After the administration of contrast, axial and co lis VIBE with fat saturation through the brain. COMPARISON: [facility] , , [place] BRAIN W & W/O CONT, 01/27/2010, 6:44. FINDINGS: Image quality: Excellent. CSF spaces: Ventricles are normal in size and shape. Basal cisterns are patent. No extra-axial flu id collections. Brain: No intracranial bleeds or mass effects. Rush-white matter interface appears intact. No susp icious white matter lesions. No abnormal intracranial enhancement. Diffusion weighted images show n o acute ischemic insults. Brainstem appears normal. Normal intravascular flow voids are present. T here is nonspecific hyperintense foci within the periventricular and subcortical white matter. There has been minimal interval change since prior exam. Skull and face: Calvarial marrow signal is normal. Orbits appear normal. Sinuses: Sinuses and mastoids are clear. IMPRESSION: 1. Nonspecific hyperintense foci in the periventricular and subcortical white matter, not significan tly changed compared to prior exam. Findings can be consistent with given history of demyelinating d isease. Given appearance and comparison to prior exam, PML is felt to be less likely. Dictated by: Miya Prater M.D. on 01/07/2017 at 9:35 Approved by: Miya Prater M.D. on 01/07/2017 at 9:49
--- NOTE | 2017-01-07 10:33 | NUR ---
Physical Therapy: PT order received. Spoke with pt this am. She is a rolando lift transfer at baseline to an electric w/c. Pt has caregiver support throughout the day and is able to manage in her w/c when caregivers are not present. Pt denied any acute PT needs. She does report a decline in her UE functional status and would be interested in some OT. Case management and MD notified regarding this request. No acute PT needs at this time, pt will be removed from PT caseload.
[2017-01-07] MEDS: DAPTOMYCIN IV SCH (10:47)
[2017-01-07] MEDS: SODIUM CHLORIDE 0.9% IV SCH (10:47)
--- NOTE | 2017-01-07 14:26 | NUR ---
Shift summary Pt has not been hypotensive this shift. Continues to be afebrile. Mild tachycardia (up to 110). Hart catheter draining to gravity with good output. Appetite has been adequate today. She reports pain is adequately controlled with scheduled medication regimen. She has been assisted with repositioning in bed. Continue with plan of care, continue with IV abx.
--- NOTE | 2017-01-07 15:35 | NUR ---
Social Work Note - Initial Assessment: D/A: See Initial Assessment. The Pt is a 56 y/o female that was admitted for UTI, sepsis, MS. Readmission Risk Score is 2. The Pt's PCP is MD Sai Fink and her primary insurance is Medicare and her supplement is with [employer], no LTC or VA benefits reported. EMR reviewed. SW met with the Pt to explain role and discuss discharge planning. The Pt lives alone in [place] where she has the assistance of seven caregivers from the [employer] program and her family for support, [facility] CM is Avani Connolly. H&P faxed. The Pt's DPOA and Identified Support Person is her [id number] Constance Cool [phone], paperwork in EMR. The Pt is wheelchair bound and has an electric wheelchair, hospital bed, and rolando lift for transfer. The Pt utilizes family or [employer] for transportation needs. Pt reports that family will assist her with transportation home. The Pt is currently open with [facility] (RN) and reports that PT was discontinued recently with no plans of resuming that specific service. The Pt has no SNF history. PT eval completed, see note. PT to sign off. OT eval active. ST following and involved. Pt currently on IV Abx. SW to follow. P: Pt not medically stable for discharge, likely to discharge home with caregivers and family support via family POV transportation. Pt also to be discharged with resumed [facility] (RN) with OT addition, if needed. SW to follow up after OT eval. Pt currently on IV Abx. SW to follow. NATALIIA Marcelino Apricot Packer Addendum: 01/07/17 at 1550 by NORM FRANKLIN SS Amended: Links added.
--- NOTE | 2017-01-07 16:59 | CONS ---
[address] [address] CONSULTATION REPORT PATIENT: GRACIA NOVAK : 1960 MR#: [id number] ADMIT: 01/06/2017 JOB ID: [id number] DATE OF SERVICE: 01/07/2017 REQUESTING PHYSICIAN: Jefry Sweeney MD, for neurologic changes, history of MS. HISTORY OF PRESENT ILLNESS: The patient is a 56-year-old female, known to me for treatment of multiple sclerosis. She was a transfer of care for management of the MS from Dr. Pj Menard. The patient started Tysabri in 2009 after failing multiple disease modifying treatment. She has remained SHANTELLE virus antibody negative with last check October 2016, although she has not been seen for a followup appointment which was planned if the patient no-showed for October appointment. She had been receiving monthly Tysabri treatment since 2009 with only short break in December 2015 due to zoster. The patient has been in a wheelchair since 2009. She has been experiencing urinary problems including urosepsis. She uses a Hart catheter and declined consideration of indwelling catheter or suprapubic catheter. She has history of vancomycin-resistant Enterococcus in 2012. Dr. Conner has been consulted for treatment of the patient's urinary tract infection as a result. Dr. Garcia suspected urosepsis and the patient was admitted with hypotension with systolic blood pressure in the 60s, fever, chills, diaphoresis, constipation, weakness and decreased fluid intake. Because of her change in speech and swallowing difficulty, which has never been experienced with her MS or with urosepsis, I recommended an MRI of the brain to look for PML. I have personally reviewed the MRI on the PACS system and discussed the results with the patient from earlier this morning with and without contrast. There is very little if any progression from 2010 and no evidence to suggest active MS with enhancing lesions or PML. The patient remains on paleo diet/Ivan Protocol. Cognitively she remains intact and today shows no signs of confusion or cognitive difficulty. 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 Urinary retention. Anxiety. Cervical cancer. History of enterococcal sepsis. SOCIAL HISTORY: No alcohol, history of alcoholism in recovery over 25 years. Uses occasional marijuana. Past amphetamine use. Past tobacco use. Lives alone. FAMILY HISTORY: Mother at an early age. Father unknown. No family history of MS known. DRUG ALLERGIES: 1. SULFA. 2. CIPRO. 3. TERBINAFINE. INPATIENT MEDICATIONS: 1. Daptomycin. 2. Vitamin D 5000 international units daily. 3. Lovenox. 4. Ertapenem. 5. Baclofen 5 mg daily. 6. MiraLAX. 7. Tizanidine 4 mg three times daily. 8. Lactobacillus. 9. Magnesium oxide 400 mg daily. 10. Reglan 10 mg two times daily. 11. Vitamin B and C complex. 12. Fish oil. 13. P.r.n. acetaminophen. 14. P.r.n. Naproxen. 15. Multivitamins. 16. Docusate. OUTPATIENT MEDICATIONS: Tysabri infusion 300 mg every four weeks. PHYSICAL EXAMINATION: The patient is a pleasant and cooperative, well-groomed female in no apparent distress. Vital signs: Blood pressure 141/91, heart rate 104, respiratory rate 16, pulse oximetry 96% on room air. Patient is afebrile. Head: Normocephalic, atraumatic. No evidence of carotid bruits. Lungs clear to auscultation. Cardiac: Tachycardic, regular rate. Minimal edema or lesions noted in the lower extremities. Skin warm to touch. No rash is seen. NEUROLOGIC EXAMINATION: The patient's language is intact and fluent and cognitively intact. Mood euthymic. Cranial nerves: Pupils equally reactive to light and accommodation. Extraocular movements intact. No facial asymmetry. Sensation intact on the face bilaterally. Tongue midline. Palate raises symmetrically. SCM and shoulder shrug, as well as hearing appear to be intact bilaterally. Motor strength: Flaccid diplegia in the lower extremities, right greater than left. Hand resident care supervisor strength of 4/5. Deep tendon reflexes trace throughout upper and lower extremities. Tone: Intact in the upper extremities. Flaccid in the lower extremities. Sensation. Intact to touch, all four extremities. Coordination: Intact, with weakness taken into consideration. Gait: Deferred. Patient uses a wheelchair at baseline. IMAGING STUDIES: As above. LABORATORIES: Hemoglobin and hematocrit 9.8/24.4. AST ALT elevated at 135 and 115. Albumin low at 2.7. TSH elevated at 6.84. MRI as above. ASSESSMENT AND RECOMMENDATION: The patient is a 56-year-old female, known to me with secondarily progressive multiple sclerosis diagnosed at age 31 and stabilized on Tysabri after she had become wheelchair bound in 2009. She has remained on Tysabri 300 mg every four weeks. Clinically, and by MRI, the patient has stabilized since 2009. Unfortunately there is no evidence to suggest PML either clinically or by MRI. Tysabri, however, is of questionable benefit considering the patient's recurrent urinary tract infections and sepsis, as well as shingles. Natalizumab/Tysabri is a powerful immunosuppressant that has been associated with increased risk of infection, particularly urinary tract infection. Given its questionable benefit at this point, I recommended discontinuing Tysabri. It is likely that there are several other factors contributing to her abnormal laboratories. I will defer to Infectious Disease and the hospitalist for management. My recommendations were discussed with the patient who agreed to discontinue Tysabri. She has an appointment scheduled for April which she should keep but call earlier if she develops any new or worsening neurologic symptoms. I will sign off for now, but am available to discuss her care if needed. Will sign off for now. Thank you this consultation. AKILAH
--- NOTE | 2017-01-07 18:06 | PCM.PNMED ---
Subjective Date of Service January 07, 2017 Subjective Alhaji Granados is a very pleasant 56-year-old white female with long- standing history of multiple sclerosis with a chronic indwelling Hart catheter. Currently under treatment for sepsis and UTI. Hospital day #2. Overnight: No acute events were noted. Today: Patient states that she feels quite well and is back to her baseline. She is in good spirit and is looking forward to going home. The remainder review of systems is negative except as noted above. Exam Vital Signs Vital Sign - Last Date Time Temp Pulse Resp B/P Pulse Ox O2 Delivery O2 Flow Rate FiO2 01/07/17 12:53 104 16 141/91 96 Room Air 01/07/17 08:38 37.0 Intake and Output 01/06/17 01/06/17 01/07/17 Cumulative From/Thru 15:00 23:00 07:00 01/06/17 10:44 - 01/07/17 06:52 Intake Total 1000 ml 1430 ml 2430 ml Output Total 3150 ml 3150 ml Balance 1000 ml -1720 ml -720 ml Intake IV Total 1000 ml 1430 ml 2430 ml Output Urine Total 3150 ml 3150 ml Exam General: Patient appears to be in no apparent distress. She is alert and responsive and a good historian at this time. HEENT: Head is atraumatic and normocephalic. Eyes: Pupils are equally round and reactive to light and accommodation. Extraocular muscles are intact. Sclera are white, anicteric. Subconjunctival mucosa is pink. Ears and nose are unremarkable. Oropharynx: There is no mucosal lesions, there is no thrush, there is no pharyngitis. Neck: Is supple, there are no nodes, or masses or tenderness. Chest: Is clear to auscultation and percussion. There are no rales, rhonchi, wheezes or rubs. Heart: Rate, rhythm is regular. There is no murmur, rub or gallop. Abdomen: Good bowel sounds are present. Abdomen is soft, nontender, no organomegaly or masses were appreciated. Extremities: Are cachectic, but symmetrical and well perfused. There is no edema, there is no cellulitis, no rash. Neurologic: Patient is unable to move her legs. She is able to move her feet. She is not able to move her lower extremities against gravity or at all for that matter except her feet. Cranial nerves II through XII are intact. Psychiatric: Patients mood is calm and she shows no sign of agitation. She appears to be in good spirits. Genital: She has a Hart catheter in place pelvic exam was deferred. IVs and Medications Medications Reviewed: Medications were reviewed in detail Lab and Diagnostics Result Diagram: 01/07/1732901/07/17329 Microbiology Urine cultures are pending. X-Rays, CTs and MRIs X-RAY CHEST ONE VIEW, PORTABLE IMPRESSION: No acute process. Dictated by: Janene Taylor M.D. on 01/06/2017 at 10:55 Assessment & Plan Alhaji Granados is a very pleasant 56-year-old white female with long- standing history of multiple sclerosis with a chronic indwelling Hart catheter. Currently under treatment for sepsis and UTI. Hospital day #2. 1. Sepsis, present at the time of admission. Active and ongoing - Source undoubtedly a urinary tract infection with chronic indwelling Hart and associated pyuria with positive leukocyte esterase in the urine. - Patient has a history of a VRE urinary tract infection in 2012. We will need to rule out the possibility of recurrence. - Dr. Conner has been consulted and has recommended that the patient received Daptomycin and Invanz which have been ordered and we will continue, pending Dr. Conner's formal consultation. - We will continue daptomycin 6 mg/kg IV every 24 hours and Invanz 1 g IV every 24 hours for now pending culture results. Amniotic day 2. 2. Advanced multiple sclerosis, present at the time of admission. Active with acute encephalopathy now resolved. - Patient's neurologist is Dr. Dina Collins. Per Dr. Collins she will be stopping Tysabri. - Suspect patient has a urinary tract infection with sepsis with related encephalopathy. - Possible PML associated with Tysabri use has been ruled out. MRI is negative. - Consulted speech therapy, occupational therapy, physical therapy. 3. History of remote angina - Patient has no chest pain at present time - Continue telemetry monitoring until tomorrow 4. History of shingles - Patient is immunosuppressed on Tysabri - Continue Valtrex as at home. 5. History of hypothyroidism - elevated TSH - Continue with home meds, may need to increase, however elevated in TSH may represent acute phase of illness. 6. History of osteoporosis - Continue home medications 7. History of depression, dissociative identity disorder and PTSD - Continue patient's home medications - Close observation and support as needed 8. History of cervical cancer status post hysterectomy Disposition: Anticipate patient will be in-house for 1-2 more days as we wait for for cultures. GI Prophylaxis: Not indicated VTE Prophylaxis: Sub-Q Enoxaparin VTE Mechanical Devices: Intermittant Pneumatic CD Resuscitation Status: CPR: Attempt Resuscitation Attending Statement Patient was seen and examined with Dr. Munguia. Chart was reviewed and agree with the above progress note. Marbella Munguia DO January 07, 2017 17:49 Jefry Sweeney MD January 07, 2017 22:14
--- NOTE | 2017-01-07 23:14 | CONS ---
[address] [address] CONSULTATION REPORT PATIENT: GRACIA NOVAK : 1960 MR#: [id number] ADMIT: 01/06/2017 JOB ID: [id number] DATE OF SERVICE: 01/07/[address] Sweeney for this consult. REASON FOR CONSULTATION: Mental status changes in a multiple sclerosis patient secondary to complicated urinary tract infection. HISTORY OF PRESENT ILLNESS: The patient is a 56-year-old woman with a 25-year history of multiple sclerosis and severe left lower extremity weakness who is well known to me from a prior admission two years ago. The patient has a history of recurrent urinary tract infections which may on occasion be associated with changes in mental status. She also has been receiving Tysabri as an immunosuppressive drugs for her MS which can produce PML and other opportunistic infections including herpes zoster which she experienced during the two years since I last saw the patient. The patient was in her usual state of reasonably compensated health and reports that in fact her strength has been improving over the past year or two in spite of her advanced multiple sclerosis. She was doing pretty well until just a day and a half ago when she developed periods of fatigue which seemed to correlate with very low blood pressures that were noted on a home blood pressure machine. She also noted she was feeling quite confused at times, and friends and caregivers noted that her speech was becoming garbled and at times frankly incoherent. All these changes occurred relatively rapidly, and she was therefore brought to the hospital and admitted yesterday. There were concerns about sepsis, and I was contacted by telephone yesterday and recommended the patient be started on daptomycin and ertapenem. I picked these because the patient had a history a few years ago of a VRE UTI which was quite severe. Linezolid was not a good option because of drug interactions, so we chose to go with daptomycin which is usually effective in these situations. The ertapenem was chosen for its more broad-spectrum gram-negative coverage including ESBLs. Note that there was also concern when she was admitted about the possibility that this could be a Tysabri-induced PML situation as this is a well-described complication of this medication. The patient's neurologist, Dr. Mary Dominguez, was therefore contacted and recommended an MRI scan which did not show evidence of PML. Over the past 24 hours or so, the patient has dramatically improved with a complete return to normal mental status. She has not experienced any more of the sweats and at no point had any fevers or chills. Her speech is now back to normal and she reports her upper extremity strength which had been waning yesterday, is now all the way back to normal. She says she is feeling fine and hopes she can be discharged in a day or two once we know the identity of the microorganisms causing her urinary tract infection. Diagnosis of urinary tract infection is based on the heavy pyuria and the absence of any other obvious infection source as well as her history of recurrent complicated UTIs. The patient has had no pulmonary symptoms at all and her chest x-ray was normal. PAST MEDICAL HISTORY: 1. Multiple sclerosis x25 years. 2. Autonomic insufficiency with periods of hypotension. 3. Recurrent UTIs secondary to indwelling Hart catheter over the past five years including the VRE infection. 4. Hypothyroidism. 5. Diverticulosis. ALLERGIES: 1. SULFA. 2. QUINOLONE DRUGS. SOCIAL HISTORY: The patient is a recovered alcoholic who has not had a drink in 23 years. She is not a smoker though she was in the distant past. She lives alone but has caregivers in during the day and family in the area. FAMILY HISTORY: Negative for tuberculosis in any first or second-degree relatives. REVIEW OF SYSTEMS: Was done. The patient currently says she is feeling back to her normal state of health. She denies any fevers, chills, sweats. She denies stiff neck, headache, visual changes or sore throat, though she did have very dry mucous membranes when she came in. This is now resolved. No significant cough. No shortness of breath. No nausea, vomiting, or diarrhea. She has an indwelling Hart and, therefore, has no urgency, frequency, or dysuria. She has basically flaccid lower extremities, but she reports lately when dangling she can move just a little bit off the chair which is a big improvement for her. She denies any skin rash. The remainder of the review of systems is negative. PHYSICAL EXAMINATION: Reveals a slender woman sitting up in bed. She is afebrile at this point, and has been since her admission yesterday morning. Temperature currently 36.7, pulse 100, respiratory rate 20, blood pressure 159/101, saturating well on room air. She is awake, alert, completely lucid, no temporal wasting. No conjunctivitis or scleral icterus. Extraocular movements are normal. Oral cavity without thrush or pharyngitis. Teeth in good repair without gingivitis. Neck is supple. No cervical or supraclavicular adenopathy. Lungs clear. Cardiac tones: Regular rate and rhythm. Abdomen is soft, nontender, without organomegaly. She has a Hart catheter in place. No suprapubic tenderness is noted. Her lower extremities are largely flaccid but without evidence of cellulitis, edema or infection. She has about 4/5 strength in her upper extremities and is using them to operate a computer without any difficulty. Her cost coordinator strength is about 3+/5 bilaterally. The lower extremities, as I mentioned, are essentially flaccid. She has an IV in her left hand which is perfusing normally. LABORATORIES: Include white count 6500. The diff is unusual with 31% segs, 55% lymphs, creatinine 0.3, bilirubin 0.2, AST 135, ALT 115, alk phos 109, albumin 2.7. Urinalysis with packed white cells and no red cells. Micro includes blood cultures negative from yesterday. The urine is preliminary and there is minimal growth in the lab. Review of prior culture shows that she has had VRE in the past. IMAGING: Includes a brain MRI done today which shows nonspecific hyperintense foci in the periventricular and subcortical white matter which are unchanged from prior MRIs. This appears to be consistent with MS. It does not have the appearance of PML. IMPRESSION: It looks as if the patient has once again suffered encephalopathy due to a complicated urinary tract infection. This has occurred to her on at least two occasions within the last four years and this episode started off typically with some sweats as well as just a generalized confusion. She has had a rapid response on this occasion with daptomycin and ertapenem which would cover all the likely prospects including VRE but not, of course, Pseudomonas. RECOMMENDATIONS: 1. Will continue with these antibiotics. 2. We await the identification of the organism in the urine with plans to discharge the patient in the next day or two if and when we do find and implicate the organism and can choose the appropriate oral or perhaps even IV antibiotic if needed. Thank you very much for this consult.
[2017-01-08] VITALS (8 sets, daily range): BP systolic 125–161; BP diastolic 79–99; PULSE 86–107; RESP 14–20; O2SAT 95–98
[2017-01-08 04:40] LABS: BASOPHILS % (AUTO) 0.5 % (0-3); EOSINOPHILS % (AUTO) 2.6 % (0-5); MONOCYTES % (AUTO) 9.3 % (4-12); Mean Corpuscular Hemoglobin 30.8 pg (27.0-35.0); Mean Corpuscular Volume 90.2 fL (81-100); NEUTROPHILS % (AUTO) 25.8 % (40-74); Platelet Count 302 bil/L (150-400)
--- NOTE | 2017-01-08 06:16 | NUR ---
pain/activity Pt stated pain was 2/10, administered scheduled naproxen and Tylenol and effective, pt also uses guided imagery as well as deep breathing exercises to help with the pain. Pt requesting repositioning when needed and able to do small adjustments on own. VSS and Tele SR 90's.
[2017-01-08] MEDS: Multivit-Miner-Folic Acid-Iron Tablet PO SCH (08:12)
[2017-01-08] MEDS: Vitamin B Complex/Vit C Tablet PO SCH (08:14)
[2017-01-08] MEDS: Ertapenem Inj 1,000 MG in 0.9% Sodium Chloride 50 ML IV SCH (08:15)
[2017-01-08] MEDS: Omega-3-Acid Ethyl Esters 1 Gm Capsule PO SCH (08:21)
[2017-01-08] MEDS: Polyethylene Glycol (PEG) 17 Gm Powder PO SCH (08:58)
--- NOTE | 2017-01-08 09:08 | NUR ---
Social Work Note: Cont. Discharge Planning Data& Assessment: Per King from [facility], pt is open with their services. Access provided. SW to continue to follow. Plan: Anticipated discharge home with resume [facility] and [facility] caregiving. SW to continue to follow. NATALIIA Askew
[2017-01-08] MEDS: DAPTOMYCIN IV SCH (09:29)
[2017-01-08] MEDS: SODIUM CHLORIDE 0.9% IV SCH (09:29)
--- NOTE | 2017-01-08 09:57 | PROG NOTE ---
[address] [address] PROGRESS NOTE PATIENT: GRACIA NOVAK : 1960 MR#: [id number] ADMIT: 01/06/2017 JOB ID: [id number] DATE: 01/08/2017 REASON FOR FOLLOWUP: Complicated urinary tract infection in a multiple sclerosis patient, on immunosuppressive therapies. INTERVAL HISTORY: The patient reports she has felt well overnight. She denies any fevers, chills, cough, abdominal pain, nausea, or vomiting. No skin rashes are noted. PHYSICAL EXAMINATION: Reveals a comfortable woman, in no acute distress. Temp 36.4, pulse 96, respiratory rate 16, blood pressure 161/97. She is saturating well on room air. In no acute distress. Mental status clear. Oral cavity negative. Lungs clear. Cardiac tones without new murmur. Abdomen benign. No skin rash noted. LABORATORIES: Include a white count 6400, today. Is still very odd diff with lymphs more than neutrophils. Creatinine less than 0.3. AST 78, ALT 104, alk phos 133. Micro blood cultures are negative. Urine is growing two separate gram-negative rods with susceptibilities to follow. No VRE have been countered. MRI showed no evidence of PML. IMPRESSION: This is a 56-year-old woman with longstanding multiple sclerosis who presented with encephalopathy. This happened to her in the past and has typically been secondary to urinary tract infections, and I think this is no exception. Fortunately, the VRE which had been a problem for her in the past has not been isolated. RECOMMENDATIONS: 1. Will go ahead and discontinue the daptomycin. 2. Will continue with ertapenem while we await final cultures. 3. Hopefully, tomorrow should be able to go home. Whether or not she will be able to go home on oral antibiotics is unclear because the patient has a serious drug interaction with one of her MS drugs with quinolones, and cannot take quinolones, and also is reportedly self-allergic, which limits our oral options quite a bit. Thank you very much. We will be following this patient up tomorrow.
--- NOTE | 2017-01-08 15:27 | NUR ---
NUTRITION ASSESSMENT: ASSESS: Pt is a 56yo F admitted for UTI and sepsis. She is on a general diet with good PO at 100% of all meals. Per chart review, pt has had ~7kg wt loss over the past year (14% x1 year). She follows a very strict Paleo diet at home to help with her MS. Pt does not eat dairy, eggs, grains or potatoes. She reported that she has family coming in tonight to bring in food that she typically eats at home. Pt reported that she was very surprised by her wt when she was admitted to the hospital and understands that she needs to focus on gaining wt when she is discharged. PMHX: MS, shingles, hypothyroid, osteoporosis LABS: Reviewed. Typer <.3, AST 78, ALT 104, Alb 3.2 MEDS: Reviewed. Vit D, Vit B, Fish oil, MVI, Miralax, Bacid GI: 0 BM SKIN: no major issues CURRENT WTS: 43.4kg, BMI 16.9kg/m2, IBW: 52.3kg DIET: General, PO 100% EST. NEEDS: wt gain Kcals: 1300-1520kcal/day (30-35kcal/kg) Pro: 65-80g/day (1.2-1.5g/kg IBW) NUTRITION DIAGNOSIS: 1) Unintentional wt loss related to chronic disease as evidence by 14% wt loss x1 year and pt with MS. NUTRITION INTERVENTION: 1.) Discussed pt's recent wt loss and her need to gain wt/strength. Pt has a very specific diet (high protein/fat, low carb). Discussed the importance of getting enough kcals with this diet so that she doesn't lose any more wt. Pt expressed understanding and is having family bring food from home that she typically eats. Pt eats lots of nuts, uses coconut oil and avocado in lots of her cooking and she eats lots of meat. MONITOR / EVAL: PO, wt, gi, labs, POC, nutrition status. Will continue to monitor per moderate nutrition risk guidelines.
--- NOTE | 2017-01-08 17:55 | PCM.PNMED ---
Subjective Date of Service January 08, 2017 Subjective Alhaji Granados is a very pleasant 56-year-old white female with long- standing history of multiple sclerosis with a chronic indwelling Hart catheter. Currently under treatment for sepsis and UTI. Hospital day #3. Overnight: No acute events were noted. Today: Patient states that she feels quite well and is looking forward to going home. She denies any pain or discomfort. The remainder review of systems is negative except as noted above. Exam Vital Signs Vital Sign - Last Date Time Temp Pulse Resp B/P Pulse Ox O2 Delivery O2 Flow Rate FiO2 01/08/17 16:04 36.9 107 20 137/91 97 Room Air Intake and Output 01/07/17 01/07/17 01/08/17 Cumulative From/Thru 15:00 23:00 07:00 01/06/17 10:44 - 01/07/17 19:00 Intake Total 3069 ml 5499 ml Output Total 3350 ml 6500 ml Balance -281 ml -1001 ml Intake Oral 2960 ml 2960 ml IV Total 109 ml 2539 ml Output Urine Total 3350 ml 6500 ml # Voids 2 2 Exam General: Patient appears to be in no apparent distress. She is alert and responsive and a good historian at this time. HEENT: Head is atraumatic and normocephalic. Eyes: Pupils are equally round and reactive to light and accommodation. Extraocular muscles are intact. Sclera are white, anicteric. Subconjunctival mucosa is pink. Ears and nose are unremarkable. Oropharynx: There is no mucosal lesions, there is no thrush, there is no pharyngitis. Neck: Is supple, there are no nodes, or masses or tenderness. Chest: Is clear to auscultation and percussion. There are no rales, rhonchi, wheezes or rubs. Heart: Rate, rhythm is regular. There is no murmur, rub or gallop. Abdomen: Good bowel sounds are present. Abdomen is soft, nontender, no organomegaly or masses were appreciated. Extremities: Are cachectic, but symmetrical and well perfused. There is no edema, there is no cellulitis, no rash. Neurologic: Patient is unable to move her legs. She is able to move her feet. She is not able to move her lower extremities against gravity or at all for that matter except her feet. Cranial nerves II through XII are intact. Psychiatric: Patients mood is calm and she shows no sign of agitation. She appears to be in good spirits. Genital: She has a Hart catheter in place pelvic exam was deferred. IVs and Medications Medications Reviewed: Medications were reviewed in detail Lab and Diagnostics Result Diagram: 01/08/1740901/08/17409 Microbiology Urine cultures are growing gram negative rods, further identification is pending. X-Rays, CTs and MRIs X-RAY CHEST ONE VIEW, PORTABLE IMPRESSION: No acute process. Dictated by: Janene Taylor M.D. on 01/06/2017 at 10:55 Assessment & Plan Alhaji Granados is a very pleasant 56-year-old white female with long- standing history of multiple sclerosis with a chronic indwelling Hart catheter. Currently under treatment for sepsis and UTI. Hospital day #3. 1. Sepsis, present at the time of admission. Active and ongoing - Source undoubtedly a urinary tract infection with chronic indwelling Hart and associated pyuria with positive leukocyte esterase in the urine. - Patient has a history of a VRE urinary tract infection in 2012. We will need to rule out the possibility of recurrence. - Dr. Conner has been consulted and had recommended that the patient receive Daptomycin and Invanz which have been ordered and we will continue, pending Dr. Conner's formal consultation. - Per Dr. Conner Daptomycin was discontinued. Continuing with ertapenem as we await further information from the cultures. Antibiotic day 3. 2. Advanced multiple sclerosis, present at the time of admission. Active with acute encephalopathy now resolved. - Patient's neurologist is Dr. Dina Collins. Per Dr. Collins she will be stopping Tysabri. - Suspect patient has a urinary tract infection with sepsis with related encephalopathy. - Possible PML associated with Tysabri use has been ruled out. MRI is negative. - Consulted speech therapy, occupational therapy, physical therapy. 3. History of remote angina - Patient has no chest pain at present time - Continue telemetry monitoring until tomorrow 4. History of shingles - Patient is immunosuppressed on Tysabri - Continue Valtrex as at home. 5. History of hypothyroidism - elevated TSH - Continue with home meds, may need to increase, however elevated in TSH may represent acute phase of illness. 6. History of osteoporosis - Continue home medications 7. History of depression, dissociative identity disorder and PTSD - Continue patient's home medications - Close observation and support as needed 8. History of cervical cancer status post hysterectomy Disposition: Anticipate patient will be in-house for 1-2 more days as we wait for cultures. Pain Evaluation: Adequate Pain Control GI Prophylaxis: Not indicated VTE Prophylaxis: Sub-Q Enoxaparin VTE Mechanical Devices: Intermittant Pneumatic CD Resuscitation Status: CPR: Attempt Resuscitation Attending Statement Patient was seen and examined with Dr. Munguia. Chart was reviewed and agree with the above progress note. Marbella Munguia DO January 08, 2017 17:50 Jefry Sweeney MD January 08, 2017 19:33
--- NOTE | 2017-01-08 18:28 | NUR ---
Shift note Pt complaining of intermittent hip pain as well as R knee pain. Pain has been well controlled by scheduled pain medication and repositioning. Pt is having occasional muscle spasms which are also helped with repositioning. Hart cath draining to gravity, output greater than 3000cc today as patient is drinking large amounts of water. No new skin issues. Patient is eating well at meals. Vitals have been stable, afebrile. Continue with IV abx, continue with plan of care.
[2017-01-09 03:37] LABS: BASOPHILS % (AUTO) 0.4 % (0-3); MONOCYTES % (AUTO) 9.5 % (4-12); Mean Corpuscular Hemoglobin 30.5 pg (27.0-35.0); Mean Corpuscular Volume 90.4 fL (81-100); NEUTROPHILS % (AUTO) 26.3 % (40-74); Platelet Count 388 bil/L (150-400)
[2017-01-09 04:38] VITALS: BP 144/96; PULSE 93; RESP 16; O2SAT 96
--- NOTE | 2017-01-09 06:29 | NUR ---
Restful Night Pt given HS meds which included meds for pain management. Pt was adjusted in bed per request and soon appeared to fall asleep, only waking for interventions. Pt only adjusted in bed per her request as she likes specific movements. All vitals stable, tele SR 90s-100s. Ferraro patent and draining yellow urine, ferraro care done.
[2017-01-09 08:35] VITALS: BP 146/91; PULSE 109; RESP 16; O2SAT 95
[2017-01-09] MEDS: Ertapenem Inj 1,000 MG in 0.9% Sodium Chloride 50 ML IV SCH (08:41)
[2017-01-09] MEDS: Multivit-Miner-Folic Acid-Iron Tablet PO SCH (08:42)
[2017-01-09] MEDS: Polyethylene Glycol (PEG) 17 Gm Powder PO SCH (08:42)
[2017-01-09] MEDS: Vitamin B Complex/Vit C Tablet PO SCH (08:43)
[2017-01-09] MEDS: Omega-3-Acid Ethyl Esters 1 Gm Capsule PO SCH (09:28)
--- NOTE | 2017-01-09 10:02 | PROG NOTE ---
[address] [address] PROGRESS NOTE PATIENT: GRACIA NOVAK : 1960 MR#: [id number] ADMIT: 01/06/2017 JOB ID: [id number] DATE: 01/09/2017 INFECTIOUS DISEASE FOLLOW UP NOTE: REASON FOR FOLLOWUP: Complicated urinary tract infection presenting with encephalopathy in a patient with multiple sclerosis. INTERVAL HISTORY: Overnight, the patient has been free of fevers, chills or sweats. She has no pulmonary or GI symptoms. She is feeling back to her normal self except she is losing a lot of weight because she is away from home where she follows a specialized diet. She is very desirous of being discharged today and would prefer not to have home IV antibiotics. PHYSICAL EXAMINATION: Reveals an alert, comfortable, thin woman. She has been afebrile since admission. Temperature 36.6, pulse 109, respiratory rate 16, blood pressure 146/91. She is saturating well on room air. Examination of the head unremarkable. Oral cavity negative. Lungs basically clear. Cardiac tones: Regular rate and rhythm without murmur. Abdomen unchanged. No flank tenderness. LABORATORIES: Include white count 7100, creatinine less than 0.3. LFTs normal except for an ALT which is slowly dropping and it is now down to 84. Procalcitonin was done on the and was 1.92. It has not been repeated. Urinalysis was packed with white cells when she came. Blood cultures from the are negative but the urine grew two separate E coli isolates. One is extremely sensitive while the other is resistant to most beta lactams including first and second generation cephalosporins, though it is sensitive to third and fourth generation cephalosporins. It is sensitive to Cipro and Bactrim but the patient cannot take either one. She cannot take quinolones because of drug interactions that she cannot take Septra because of bad reactions. IMPRESSION: This is an unfortunate 56-year-old woman with paraplegia and neurogenic bladder due to multiple sclerosis with chronic indwelling Hart. She presented three days ago with confusion and encephalopathy due to a complicated E coli urinary tract infection. She has two species of E. coli in the urine. One is susceptible, one fairly resistant, and the whole thing is made more difficult as she cannot take quinolones nor can she take Bactrim. RECOMMENDATIONS: 1. I would make sure the patient gets her dose of ertapenem today before she leaves. 2. She could reasonably be discharged with fosfomycin a single dose today and another dose on Saturday, January 12. 3. I realize this is a bit nonstandard in that were treating a complicated UTI that was sufficient enough to cause encephalopathy with an oral regimen but she will have received four days of full IV therapy before she leaves today and she was never bacteremic so I am reasonably comfortable with this and the patient understands and agrees with this plan. 4. ID will go ahead and sign off at this time.
[2017-01-09 10:38] VITALS: PULSE 83
--- NOTE | 2017-01-09 10:49 | NUR ---
BP/HR Pt BP 146/91 HR 109, pt states this is par for the course. Pt VS history shows BP and HR within same parameters. Pt resting. Care continues.
[2017-01-09] MEDS ORDERED: CEFD300C3 PO (12:01)
[2017-01-09 12:04] VITALS: BP 156/92; RESP 16; O2SAT 98
--- NOTE | 2017-01-09 12:05 | PCM.DIMED ---
Marbella Munguia DO 01/09/17 1205: Discharge Instructions Date of Service January 09, 2017 Dates of Hospitalization January 06, 2017 at 13:38 Discharge Diagnosis Discharge Diagnosis 1. Sepsis, present at the time of admission. Active and ongoing 2. Advanced multiple sclerosis, present at the time of admission. Active with acute encephalopathy now resolved. 3. History of remote angina 4. History of shingles 5. History of hypothyroidism 6. History of osteoporosis 7. History of depression, dissociative identity disorder and PTSD 8. History of cervical cancer status post hysterectomy Diet Heart Healthy Activity Limited until seen by PCP Call your provider Fever or Chills, Shortness of breath, Excessive diarrhea Patient Instructions Please follow up with your PCP in 1 week. Our neurologist, Dr. Collins, has stopped your Tysabri. You will need to continue antibiotics for 7 more days. It is a pill you need to take twice a day. You could be followed by procalcitonin when you start to feel signs of infection. This information will be forwarded to your PCP. Follow-up plan Discussed antibiotic regiment with Dr. Conner. He agrees with Cefdinir. Follow-up Provider: Sai Fink MD Follow-up with PCP in: 1 week Jefry Sweeney MD 01/09/172024: Discharge Instructions Attending's Statement Patient was seen and examined with Dr. Munguia. Chart was reviewed and agree with the above discharge instructions. Marbella Munguia DO January 09, 2017 12:05 Jefry Sweeney MD January 09, 2017 20:25
--- NOTE | 2017-01-09 13:00 | NUR ---
Social Work Note: Discharge Data& Assessment: Per pt is medially improved and ready to discharge home via POV. Alhaji Estrada is a 56 year old female admitted on 01/06/2017 for UTI and sepsis. Per pt is medically improved and ready for discharge. Per pt is being transferred to P.O medications. SW met with pt at bedside to confirm discharge plan and to assess for any unmet needs. Pt confirmed plan to discharge home with vikram WA[facility] RN and OT as well as vikram [facility] Caregiving. Pt confirmed her family will be transporting her home. Meri [facility] notified of her discharge home. Discharge paperwork faxed to [facility] . Pt denies any other needs. No other discharge needs identified. Plan: Per pt is medically improved and ready to discharge home via POV with vikram WA[facility] RN and OT and [facility] caregiving.Pt denies any other needs. No other discharge needs identified. NATALIIA Askew
--- NOTE | 2017-01-09 13:21 | NUR ---
Monurol Monurol arrived from Pharmacy at noon, pt stated she was not to take this medication per Dr Sweeney. Conversed with Hipolito Sweeney and Ezra, both requested medication be sent back to pharmacy. Per MDs do not give Monurol to pt. Instead send prescription on chart home with pt per Dr Munguia. Prescription for Cefdinir going home with pt. Care continues.
--- NOTE | 2017-01-09 14:56 | NUR ---
Discharge Pt discharged to home with sister in law at approximately 1445. Pt given educational material for new Prescription Cefdinir, Sepsis, UTI. Next dose to be taken clearly written with dates and times. IV DC'd catheter intact, Tele DC'd monitor and storage bin tender notified. Pt left with ferraro. Pt left with all personal belongings. Escorted by [facility] HOME NANNY in wheelchair to door.
--- NOTE | 2017-01-09 18:49 | PCM.DC.MED ---
Discharge Summary Date of Service January 09, 2017 Dates of Hospitalization Date of Hospital Admission January 06, 2017 at 13:38 Date of Discharge: January 09, 2017 Providers: Admitting Physician: Jefry Sweeney MD Primary Care Physician: Sai Fink MD Attending Physician: Jefry Sweeney MD Diagnosis at Time of Discharge Diagnosis at Time of Discharge 1. Sepsis, present at the time of admission. Active and ongoing 2. Advanced multiple sclerosis, present at the time of admission. Active with acute encephalopathy now resolved. 3. History of remote angina 4. History of shingles 5. History of hypothyroidism 6. History of osteoporosis 7. History of depression, dissociative identity disorder and PTSD 8. History of cervical cancer status post hysterectomy Consultations Infectious Disease Procedures XRay, CTs & MRIs X-RAY CHEST ONE VIEW, PORTABLE IMPRESSION: No acute process. Dictated by: Janene Taylor M.D. on 01/06/2017 at 10:[address] Sweeney's H and P: "The patient is a very pleasant 56-year-old white female with an extensive medical history including multiple sclerosis, urinary retention with chronic Hart catheter in place and history of vancomycin- resistant Enterococcus faecalis septicemia in 2012 has labile blood pressure home and regularly monitors her blood pressure at home. Patient will routinely drink extra liquids or raise her legs up if her blood pressure is low and yesterday she noticed that her blood pressure was low so she drank a 6 ounce can of V8 and "tons of water" and put her legs up. Pressure improved and I asked her what "tons of water" were she stated approximately 3 L of water. However, today when she found her blood pressure to be low in fact she could not even find a blood pressure on her monitor. She drank 2 L of water and put her legs up however she could still not get a blood pressure to record on her monitor. She feels that her blood pressure was so low that was undetectable by her fairly high quality blood pressure monitoring kit. She therefore called 911 and was brought to [facility] emergency room by EMS services. Patient was evaluated by Dr. Medardo Garcia who found that the patient's systolic blood pressure on arrival was only 90 patient speech was thick but she felt that was due to a very dry mouth. Patient had a chest x-ray which was unremarkable. Due to the medical suspicion of sepsis patient was given IV fluids. Patient had blood and urine cultures obtained and patient was felt to in need of IV antibiotics however she had a history of vancomycin resistant enterococcus [place] [address] Medardo Garcia contacted Dr. Marc Conner of infectious disease and Dr. Conner recommended daptomycin 400 mg IV and ertapenem 1 g IV daily. These were given in the emergency room. Dr. Salas as also discussed the case with the patient's neurologist Dr. Dina Abdul who recommended patient have an MRI with and without contrast. To exclude the possibility of development of PML the Tysabri medication that she takes. Patient was seen by speech pathology and was cleared to eat. Patient's urinalysis was found to have greater than 50 white blood cells, and positive leukocyte esterace. Given the clinical evidence of urinary tract infection, with septicemia, with history of vancomycin-resistant enterococcus, patient was admitted to the hospital service for further evaluation and treatment." Hospital Course Alhaji Granados is a very pleasant 56-year-old white female with long- standing history of multiple sclerosis with a chronic indwelling Hart catheter. Currently under treatment for sepsis and UTI. Hospital day #3. 1. Sepsis, present at the time of admission. Active and ongoing - Source undoubtedly a urinary tract infection with chronic indwelling Hart and associated pyuria with positive leukocyte esterase in the urine. - Patient has a history of a VRE urinary tract infection in 2014. - Dr. Conner has been consulted and had recommended that the patient receive Daptomycin and Invanz which have been ordered. - Per Dr. Conner Daptomycin was discontinued. Continuing with ertapenem. Antibiotic day 3. - Patient discharged on Cefdinir 300 mg PO twice a day for 7 more days. This was clarified with Dr. Conner. 2. Advanced multiple sclerosis, present at the time of admission. Active with acute encephalopathy now resolved. - Patient's neurologist is Dr. Dina Collins. Per Dr. Collins she will be stopping Tysabri. - Suspected patient sepsis with related encephalopathy. - Possible PML associated with Tysabri use has been ruled out. MRI was negative. - Consulted speech therapy, occupational therapy, physical therapy. 3. History of remote angina - Continued telemetry monitoring 4. History of shingles - Patient is immunosuppressed on Tysabri - Continued Valtrex as at home. 5. History of hypothyroidism - elevated TSH - Continued with home meds, may need to increase, however elevated in TSH may represent acute phase of illness. 6. History of osteoporosis - Continued home medications 7. History of depression, dissociative identity disorder and PTSD - Continued patient's home medications - Close observation and support as needed 8. History of cervical cancer status post hysterectomy Exam Vital Signs (Last) Date Time Temp Pulse Resp B/P Pulse Ox O2 Delivery O2 Flow Rate FiO2 01/09/17 12:04 36.8 16 156/92 98 Room Air 01/09/17 10:38 83 Exam General: Patient appears to be in no apparent distress. She is alert and responsive and a good historian at this time. HEENT: Head is atraumatic and normocephalic. Eyes: Pupils are equally round and reactive to light and accommodation. Extraocular muscles are intact. Sclera are white, anicteric. Subconjunctival mucosa is pink. Ears and nose are unremarkable. Oropharynx: There is no mucosal lesions, there is no thrush, there is no pharyngitis. Neck: Is supple, there are no nodes, or masses or tenderness. Chest: Is clear to auscultation and percussion. There are no rales, rhonchi, wheezes or rubs. Heart: Rate, rhythm is regular. There is no murmur, rub or gallop. Abdomen: Good bowel sounds are present. Abdomen is soft, nontender, no organomegaly or masses were appreciated. Extremities: Are cachectic, but symmetrical and well perfused. There is no edema, there is no cellulitis, no rash. Neurologic: Patient is unable to move her legs. She is able to move her feet. She is not able to move her lower extremities against gravity or at all for that matter except her feet. Cranial nerves II through XII are intact. Psychiatric: Patients mood is calm and she shows no sign of agitation. She appears to be in good spirits. Genital: She has a Hart catheter in place pelvic exam was deferred. Test 01/06/17 11:12 01/07/17 00:25 01/07/17 03:30 01/09/17 03:25 Urine Color Yellow (YELLOW) Urine Appearance Cloudy (CLEAR,HAZY) Urine pH 8.0 (5.0-8.0) Urine Specific [place] 1.015 (1.003-1.035) Urine Protein Negativemg/dL (NEG,TRACE) Urine Glucose (UA) Negativemg/dL (NEGATIVE) Urine Ketones 15mg/dL (NEGATIVE) Urine Occult Blood Trace (NEGATIVE) Urine Nitrite Positive (NEGATIVE) Urine Bilirubin Negative (NEGATIVE) Urine Urobilinogen Normalmg/dL (NORMAL) Urine Leukocyte Esterase Large (NEGATIVE) Urine RBC 0-2/hpf (0-2) Urine WBC >50/hpf (0-5) Urine Epithelial Cells Few/hpf (NONE-MOD) Urine Crystals None seen (NONE SEEN) Urine Bacteria Many/hpf (NONE-FEW) Urine Hyaline Casts None/lpf (NONE) Urine Granular Casts None seen (NONE SEEN) Urine Waxy Casts None seen (NONE SEEN) Urine Red Blood Cell Casts None seen (NONE SEEN) Urine White Blood Cell Casts None seen (NONE SEEN) Urine Mucus None seen (None Seen) Urine Trichomonas None seen (NONE SEEN) Urine Yeast None (NONE SEEN) Urinalysis Comment None Urine Culture Reflexed Indicated Lactic Acid Level 0.8mmol/L (0.4-2.0) Phosphorus Level 4.1mg/dL (2.5-4.9) Magnesium Level 1.8mg/dL (1.6-2.6) Procalcitonin 1.92ng/mL (0.00-0.08) Thyroid Stimulating Hormone (TSH) 6.840uIU/mL (0.450-4.500) White Blood Count 7.1th/mm3 (3.8-10.1) Red Blood Count 4.07mil/mm3 (3.90-5.20) Hemoglobin 12.4g/dL (12.0-15.6) Hematocrit 36.8% (35.0-46.0) Mean Corpuscular Volume 90.4fL (81-100) Mean Corpuscular Hemoglobin 30.5pg (27.0-35.0) Mean Corpuscular Hemoglobin Concent 33.7% (32.0-37.0) Red Cell Distribution Width 15.2% (12.3-15.4) Platelet Count 388bil/L (150-400) Neutrophils (%) (Auto) 26.3% (40-74) Lymphocytes (%) (Auto) 61.4% (14-46) Monocytes (%) (Auto) 9.5% (4-12) Eosinophils (%) (Auto) 2.0% (0-5) Basophils (%) (Auto) 0.4% (0-3) Sodium Level 141mEq/L (134-144) Potassium Level 3.9mEq/L (3.5-5.2) Chloride Level 100mEq/L (97-108) Carbon Dioxide Level 28mmol/L (18-29) Blood Urea Nitrogen 6mg/dL (6-24) Creatinine < 0.30mg/dL (0.57-1.00) Estimat Glomerular Filtration Rate mL/min (>59) Glucose Level 107mg/dL (60-99) Calcium Level 9.2mg/dL (8.5-10.1) Total Bilirubin 0.2mg/dL (0.0-1.2) Aspartate Amino Transf (AST/SGOT) 50U/L (0-50) Alanine Aminotransferase (ALT/SGPT) 84U/L (0-32) Alkaline Phosphatase 149U/L (25-150) Total Protein 6.4g/dL (6.4-8.4) Albumin 3.8g/dL (3.4-5.0) Microbiology Results Urine cultures are growing gram negative rods, further identification is pending. Discharge Medications Discharge Medications ([b complex]) 1 TAB PO DAILY (Reported) ([thyroid support ]) 1 TAB PO HS (Reported) ([thyroid support]) 2 TAB PO DAILY (Reported) Acetaminophen (Acetaminophen) 500 Mg Tablet 1,000 MG PO BID (Reported) Baclofen (Baclofen) 10 Mg Tablet 5 MG PO MID DAY (Reported) Black Cohosh Root Extract (Black Cohosh Extract) 80 Mg Capsule 40 MG PO BID ( Reported) Cefdinir (Cefdinir) 300 Mg Capsule 300 MG PO BID Prescribed by: MARBELLA MUNGUIA DO Cholecalciferol (Vitamin D3) (Vitamin D) 1,000 Unit Capsule 5,000 UNIT PO daily alternating (Reported) Cholecalciferol (Vitamin D3) (Vitamin D) 1,000 Unit Capsule 10,000 UNIT PO daily alternating (Reported) Docusate Sodium (Colace) 100 Mg Capsule 100 MG PO BID (Reported) Fish Oil/Borage/Flax/Om3,6,9#1 ([place] 3-6-9 Complex Softgel) 400 Mg Capsule 1, 600 MG PO DAILY (Reported) Fish Oil/Borage/Flax/Om3,6,9#1 ([place] 3-6-9 Complex Softgel) 400 Mg Capsule 800 MG PO HS (Reported) Gluc 2Kcl/Chondr/James Hy/Hy AC (Glucosamine & Chondroitin Cap) 1 Each Capsule 2 EACH PO DAILY (Reported) Lactobacillus Combo No.11 (Probiotic) 1 Each Cap.sprink 50 MG PO DAILY (Reported ) Magnesium (Magnesium) 250 Mg Tablet 500 MG PO DIRECTED (Reported) Methylphenidate Chew (Methylphenidate Chew) 10 Mg Tab.chew 10 MG PO DIRECTED (Reported) 10 mg in a.m. and 10 mg at 1400 daily Naproxen Sodium (Aleve) 220 Mg Capsule 440 MG PO BID (Reported) Nortriptyline (Nortriptyline) 75 Mg Capsule 75 MG PO HS (Reported) Pepsin/Katt/Ox Bile/Rogers/Bet/Pap (Enzymatic Digestant ER Tablet) 1 Each Tablet.er 1 EACH PO DAILY (Reported) Strontium Nitrate (Strontium Nitrate) 1 Gm Crystals 680 MG ORAL DAILY (Reported ) Tizanidine (Tizanidine) 4 Mg Capsule 4 MG PO TID (Reported) Turmeric (Curcumin) 1 Gm Powder 665 MG PO DAILY (Reported) Valacyclovir (Valacyclovir) 500 Mg Tablet 500 MG PO HS (Reported) Miscellaneous Medications Multivits,Ca,Minerals/Iron/FA (Women's Daily Formula Caplet) 500-18-0.4 Tablet 2 EACH PO (Reported) Polyethylene Glycol 3350 (Miralax) 17 Gm Powd.pack 17 GM PO (Reported) Followup Plan Disposition: Patient is being discharged home. Follow-up plan Discussed antibiotic regiment with Dr. Conner. He agrees with Cefdinir. Discharge Diet: Heart Healthy Discharge Activity: Limited until seen by PCP Patient Instructions Please follow up with your PCP in 1 week. Our neurologist, Dr. Collins, has stopped your Tysabri. You will need to continue antibiotics for 7 more days. It is a pill you need to take twice a day. You could be followed by procalcitonin when you start to feel signs of infection. This information will be forwarded to your PCP. Follow-up Provider: Sai Fink MD Follow-up with PCP in: 1 week Time spent Time spent on discharging this patient was greater than 35 minutes, over half of which was involved in counseling and coordination of care. Attending Statement Patient was seen and examined with Dr. Munguia. Chart reviewed and agree with the above discharge summary. Marbella Munguia DO January 09, 2017 18:49 Jfery Sweeney MD January 09, 2017 20:23
== END 2017-01-09 14:47 | disposition home health service (06) | DRG 698 ==
LOC: SED 10:19 → EDBD 10:19 → PCC 13:38
PROVIDERS: ADMIT Internal Medicine Infectious Disease; ATTEND Internal Medicine Infectious Disease
DX: T83.511A Infection and inflammatory reaction due to indwelling urethral catheter, initial encounter (principal); A41.9 Sepsis, unspecified organism; G93.40 Encephalopathy, unspecified; G82.20 Paraplegia, unspecified; N39.0 Urinary tract infection, site not specified; G35 Multiple sclerosis; E03.9 Hypothyroidism, unspecified; F32.9 Major depressive disorder, single episode, unspecified; M81.0 Age-related osteoporosis without current pathological fracture; B02.9 Zoster without complications; B96.20 Unspecified Escherichia coli [E. coli] as the cause of diseases classified elsewhere